=== PATIENT | male | born 1960 | race Caucasian/White ===

== ENCOUNTER 2019-07-23 08:14 | Outpatient (CLI) | payer BC ==
--- NOTE | 2019-07-23 09:45 | CT ---
CT Pulmonary Lung Scan History: Personal history of nicotine dependence Comparison: None. Findings: Lung screening specific (Lung-RADS): No suspicious pulmonary nodule. Potentially significant incidentals (derick RADS category S): No new or unknown findings requiring urgen t additional evaluation. Pulmonary incidentals: Scattered lower lobe micronodules. Low-grade pulmonary emphysema. No pneumotho rax. No effusion. Other incidentals: Surgical clips along the thyroid bed.Upper abdomen is unremarkable. No acute osseous abnormality Impression: 1. Lung RADS category 2: Benign appearance or behavior. Recommend screening chest CT 12 months. 2. BI-RADS category S: Negative. No new or unknown incidental findings requiring urgent additional ev aluation..
== END 2019-07-23 08:15 | disposition home or self-care (01) ==
LOC: CT 08:14
PROVIDERS: ATTEND Family Medicine
DX: Z12.2 Encounter for screening for malignant neoplasm of respiratory organs (principal); F17.210 Nicotine dependence, cigarettes, uncomplicated
CPT/HCPCS: G0297